=== PATIENT | male | born 1985 | race Caucasian/White ===

== ENCOUNTER → 2023-08-27 | Outpatient (CLI) | payer BC, OTHER ==
--- NOTE | 2023-08-27 12:59 | CT ---
Exam: CT Angiography of the Chest. Date: 08/27/2023. Comparison: None History: History of transection of the aorta repair. Technique: CT examination of the chest was performed without and following the intravenous administra tion of 100 mL of Isovue-[id number]. [address] dose lowering techniques were used, to include: automated exposure c ontrol, adjustment for patient size, and/or use of iterative reconstruction. FINDINGS: Mediastinum and Echo: There is no axillary, mediastinal or hilar lymphadenopathy. Pleural and Pericardial spaces: There are no pleural or pericardial effusions. Upper Abdomen: The visualized upper abdomen is unremarkable. Cardiovascular: The thoracic aorta is normal in size without evidence of aneurysm or dissection. Ther e appears to be some calcification or prior surgical changes within the distal aortic arch. Pulmonary Artery: There are no filling defects in the pulmonary arteries. Lung Parenchyma and Airways: There are a few linear bands of opacity within the left lung which are l ikely atelectasis or scarring. Small area of pleural thickening is seen within the right upper lobe. Attention on follow-up. Bones: No fracture or aggressive osseous lesion. IMPRESSION: 1. There appears to be prior surgical changes within the distal aortic arch with no evidence of aneur ysmal dilation or dissection. 2. No pulmonary embolus is seen. 3. No focal pneumonia, however there is some mild area of pleural thickening within the right upper l obe. Attention on follow-up is recommended. Consider follow-up in 3-6 months or comparison to priors if available.
== END | disposition home or self-care (01) ==
LOC: RADCTMAIN 08:44
PROVIDERS: ATTEND Internal Medicine
DX: J92.9 Pleural plaque without asbestos (principal); S25.0 Injury of thoracic aorta; I10 Essential (primary) hypertension; E66.9 Obesity, unspecified; X58.XXXD Exposure to other specified factors, subsequent encounter; Z98.890 Other specified postprocedural states
CPT/HCPCS: 71275; Q9967